=== PATIENT | female | born 1995 | race American Indian/Alaskan Native ===

== ENCOUNTER 2016-11-24 01:54 | Emergency (ER) | payer SELFPAY ==
[2016-11-24 02:05] VITALS: BP 121/54
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
== END 2016-11-24 02:25 | disposition left against medical advice (07) ==
LOC: ED 01:54
DX: M79.603 Pain in arm, unspecified (principal); Z53.21 Procedure and treatment not carried out due to patient leaving prior to being seen by health care provider